=== PATIENT | male | born 1965 | race American Indian/Alaskan Native ===

== ENCOUNTER 2016-04-25 19:29 | Emergency (ER) | payer SELFPAY ==
[2016-04-25 20:26] VITALS: BP 157/111
[2016-04-25 20:57] LABS: Basophils % (Auto) 1.1 % (0.0-1.8); Eosinophils % (Auto) 0.8 % (0.0-4.3); Hematocrit 46.7 % (35.5-45.6); Hemoglobin 15.5 gm/dl (11.8-15.2); Mean Corpuscular HGB Conc 33 % (32-34); Mean Corpuscular Hemoglobin 31 pg (28-32); Mean Corpuscular Volume 93 fl (84-94); Platelet Count 186 K/mm3 (140-440); Red Blood Count 5.03 M/mm3 (3.65-5.03); Red Cell Distribution Width 15.7 % (13.2-15.2); White Blood Count 7.5 K/mm3 (4.5-11.0)
[2016-04-25 21:08] LABS: Anion Gap 21 mmol/L; Blood Urea Nitrogen 6 mg/dL (9-20); Calcium 9.3 mg/dL (8.4-10.2); Carbon Dioxide 24 mmol/L (22-30); Chloride 101.1 mmol/L (98-107); Glucose 84 mg/dL (75-100); Potassium 3.3 mmol/L (3.6-5.0); Sodium 143 mmol/L (137-145)
[2016-04-25] MEDS ORDERED: K-DUR PO ONE (21:52)
[2016-04-25] MEDS ORDERED: NORCO 7.5/325 PO ONE (21:53)
[2016-04-25] MEDS ORDERED: CLEOCIN IM ONE (21:53)
--- NOTE | 2016-04-25 21:58 | Emergency Department Report ---
ED General Adult HPI - General Chief complaint: Skin/Abscess/Foreign Body Stated complaint: RIGHT SIDE FACIAL CYST Time Seen by Provider: 04/25/16 21:45 Source: patient, family Mode of arrival: Ambulatory Limitations: No Limitations - History of Present Illness Initial comments: PT c/o bump on his face since Sunday. PT denies any injury or dental problem. PT states he has abscesses before. PT states the swelling has gotten bigger. MD Complaint: abscess Onset/Timin -: Gradual, days(s) Location: face Radiation: non-radiation Severity scale (0 -10): 8 Improves with: none Worsens with: movement, other (palpation ) Associated Symptoms: fever/chills (subjective fever ). denies: nausea/vomiting - Related Data Previous Rx's Medication Instructions Recorded Last Taken Type Acetaminophen/Codeine [Tylenol #3] 1 tab PO Q6H PRN #12 tab 04/25/16 Unknown Rx Clindamycin [Clindamycin CAP] 300 mg PO Q8H #30 cap 04/25/16 Unknown Rx Allergies Allergy/AdvReac Type Severity Reaction Status Date / Time No Known Allergies Allergy Unverified 04/25/16 20:28 ED Review of Systems ROS: Stated complaint: RIGHT SIDE FACIAL CYST Other details as noted in HPI Comment: All other systems reviewed and negative Constitutional: fever (subjective ) ENT: denies: throat pain, dental pain Gastrointestinal: denies: nausea, vomiting Skin: as per HPI, change in color, pruritus ED Past Medical Hx - Past Medical History Previous Medical History?: No Hx Hypertension: No Hx Diabetes: No - Surgical History Past Surgical History?: Yes Additional Surgical History: right leg. abdominal - Social History Smoking Status: Current Every Day Smoker Substance Use Type: Alcohol - Medications Home Medications: Home Medications Medication Instructions Recorded Confirmed Last Taken Type Acetaminophen/Codeine [Tylenol #3] 1 tab PO Q6H PRN #12 tab 04/25/16 Unknown Rx Clindamycin [Clindamycin CAP] 300 mg PO Q8H #30 cap 04/25/16 Unknown Rx ED Physical Exam - General Limitations: No Limitations General appearance: alert, in no apparent distress - Head Head exam: Present: atraumatic, normocephalic, other (firm 3 cm abscess to R mandible ) - Eye Eye exam: Present: normal appearance. Absent: conjunctival injection - ENT ENT exam: Present: normal orophraynx, mucous membranes moist, normal external ear exam, other (all of pt's lower teeth have been removed. no signs of gingivitis ) - Neck Neck exam: Present: normal inspection, full ROM. Absent: tenderness, lymphadenopathy - Respiratory Respiratory exam: Present: normal lung sounds bilaterally. Absent: respiratory distress - Cardiovascular Cardiovascular Exam: Present: regular rate, normal rhythm, normal heart sounds - Extremities Exam Extremities exam: Present: normal inspection, full ROM - Back Exam Back exam: Present: normal inspection - Neurological Exam Neurological exam: Present: alert, oriented X3 - Psychiatric Psychiatric exam: Present: normal affect, normal mood - Skin Skin exam: Present: warm, dry, intact ED Course Vital Signs 04/25/16 20:21 Temperature 99.5 F Pulse Rate 92 H Respiratory 18 Rate Blood Pressure 157/111 O2 Sat by Pulse 96 Oximetry - Reevaluation(s) Reevaluation #1: 04/25/16 22:01 PT advised to refrain from smoking, pt not ready to quit. PT given home instructions on abscess. PT also aware that he will need to have his bp rechecked by follow up. PT's family member states they have a doctor that the pt can follow up with. PT aware abscess is not ready for drainage at this time. - Pulse Oximetry Interpretation Digit-Finger Initial Pulse Oximetry Readin Actions Taken: none ED Medical Decision Making - Lab Data Result diagrams: 04/25/16 20:39 04/25/16 20:39 - Differential Diagnosis abscess, dental abscess Critical care attestation.: If time is entered above; I have spent that time in minutes in the direct care of this critically ill patient, excluding procedure time. ED Disposition Clinical Impression: Acute abscess of face, Hypokalemia, Tobacco abuse, Elevated blood pressure Disposition: DISCHARGED TO HOME OR SELFCARE Is pt being admited?: No Does the pt Need Aspirin: No Condition: Stable Instructions: How to Stop Smoking (ED), Hypokalemia (ED), Abscess (ED), Hypertension (ED) Additional Instructions: Warm compresses at least 4 times a day Please refrain from smoking Return for recheck in 2 days Follow up with PCP in 1 week for bp recheck No driving or ETOH after taking Tylenol #3 wash with OTC Hibiclens soap Prescriptions: Acetaminophen/Codeine [Tylenol #3] 1 tab PO Q6H PRN #12 tab PRN Reason: Pain , Severe (7-10) Clindamycin [Clindamycin CAP] 300 mg PO Q8H #30 cap Referrals: PRIMARY CARE, [Primary Care Provider] - 3-5 Days Forms: Work/School Release Form(ED) Time of Disposition: 22:09
== END 2016-04-25 22:36 | disposition home or self-care (01) ==
LOC: ED 19:29
DX: L02.01 Cutaneous abscess of face (principal); E87.6 Hypokalemia; R03.0 Elevated blood-pressure reading, without diagnosis of hypertension; F17.200 Nicotine dependence, unspecified, uncomplicated
CPT/HCPCS: 36415; 80048; 85025; 96372

== ENCOUNTER 2016-07-16 17:06 | Emergency (ER) | payer OTHER ==
[2016-07-16 17:55] LABS: Basophils % (Auto) 1.2 % (0.0-1.8); Eosinophils % (Auto) 1.3 % (0.0-4.3); Hematocrit 47.5 % (35.5-45.6); Hemoglobin 15.7 gm/dl (11.8-15.2); Mean Corpuscular HGB Conc 33 % (32-34); Mean Corpuscular Hemoglobin 30 pg (28-32); Mean Corpuscular Volume 92 fl (84-94); Platelet Count 171 K/mm3 (140-440); Red Blood Count 5.15 M/mm3 (3.65-5.03); Red Cell Distribution Width 14.9 % (13.2-15.2); White Blood Count 5.8 K/mm3 (4.5-11.0)
[2016-07-16 18:06] LABS: Anion Gap 17 mmol/L; BUN/Creatinine Ratio 7.77; Blood Urea Nitrogen 7 mg/dL (9-20); Calcium 8.7 mg/dL (8.4-10.2); Carbon Dioxide 27 mmol/L (22-30); Chloride 98.9 mmol/L (98-107); Glucose 160 mg/dL (75-100); Potassium 3.3 mmol/L (3.6-5.0); Sodium 140 mmol/L (137-145)
[2016-07-16 18:20] LABS: Bilirubin,Urine NEG (Negative); Blood,Urine SM (Negative); Ketones,Urine NEG (Negative); Leukocyte Esterase,Urine NEG (Negative); Mucus,Urine 3+ /HPF; Nitrite,Urine NEG (Negative); Protein,Urine <15 mg/dL mg/dL (Negative)
[2016-07-16] MEDS ORDERED: K-DUR PO ONE ×3 (20:39→21:00)
[2016-07-16 20:42] VITALS: BP 158/99
--- NOTE | 2016-07-16 21:07 | Emergency Department Report ---
HPI - General Chief Complaint: Nausea/Vomiting/Diarrhea Time Seen by Provider: 07/16/16 20:36 - HPI HPI: This is a 51-year-old -Portuguese male who presents to the emergency department from home with complaint of a one-week history of chills, intermittent fever, intermittent headache and body aches. He has not taken anything today for his symptoms but previously took some Advil and Goody powder with some transient relief. He admits to a mild cough but denies any diarrhea, vomiting, chest pain, shortness of breath. No recent travel or sick contacts at home. He denies any past medical history. He does not have a primary care physician. He is a tobacco smoker but denies any illicit drug use or abuse. ED Past Medical Hx - Past Medical History Previous Medical History?: No Hx Hypertension: No Hx Diabetes: No - Surgical History Additional Surgical History: right leg. PARTIAL AMPUTATED LEFT INDEX. abdominal (SWALLOWED FB -CHILD) - Social History Smoking Status: Current Every Day Smoker Substance Use Type: Alcohol, Marijuana - Medications Home Medications: Home Medications Medication Instructions Recorded Confirmed Last Taken Type Acetaminophen/Codeine [Tylenol #3] 1 tab PO Q6H PRN #12 tab 04/25/16 Unknown Rx Clindamycin [Clindamycin CAP] 300 mg PO Q8H #30 cap 04/25/16 Unknown Rx ED Review of Systems ROS: Stated complaint: COLD CHILLS/BODY ACHE/FEVER Other details as noted in HPI Comment: All other systems reviewed and negative Constitutional: chills, fever Eyes: denies: eye pain, eye discharge, vision change ENT: denies: ear pain, throat pain Respiratory: cough. denies: shortness of breath Cardiovascular: denies: chest pain, palpitations Gastrointestinal: nausea. denies: abdominal pain Musculoskeletal: myalgia. denies: joint swelling Skin: denies: rash, lesions Neurological: headache. denies: weakness, numbness Physical Exam - Physical Exam Vital Signs: Vital Signs 07/16/16 07/16/16 17:20 20:41 Temperature 99.3 F Pulse Rate 68 75 Respiratory 18 18 Rate Blood Pressure 171/105 Blood Pressure 158/99 [Left] O2 Sat by Pulse 100 100 Oximetry Physical Exam: GENERAL: The patient is well-developed well-nourished. HEENT: Normocephalic. Atraumatic. Extraocular motions are intact. Patient has moist mucous membranes. Pupils equal reactive to light bilaterally. No nystagmus. Oropharynx is clear without tonsillar hypertrophy, erythema or exudates. NECK: Supple. Trachea is midline. CHEST/LUNGS: Clear to auscultation. There is no respiratory distress noted. No cough heard during examination. HEART/CARDIOVASCULAR: Regular. There is no tachycardia. There is no gallop rub or murmur. ABDOMEN: Abdomen is soft, nontender. Patient has normal bowel sounds. There is no abdominal distention. SKIN: Skin is warm and dry. NEURO: The patient is awake, alert, and oriented. The patient is cooperative. The patient has no focal neurologic deficits. The patient has normal speech. Cranial nerves II-12 grossly intact. MUSCULOSKELETAL: There is no tenderness or deformity. There is no limitation range of motion. There is no evidence of acute injury. ED Course Vital Signs 07/16/16 07/16/16 17:20 20:41 Temperature 99.3 F Pulse Rate 68 75 Respiratory 18 18 Rate Blood Pressure 171/105 Blood Pressure 158/99 [Left] O2 Sat by Pulse 100 100 Oximetry ED Medical Decision Making - Lab Data Result diagrams: 07/16/16 17:33 07/16/16 17:33 - Radiology Data Radiology results: image reviewed interpreted by me: Chest x-ray did not show any acute process. Heart is normal shape and size. No effusions. No pneumothorax. No signs of pneumonia seen. - Medical Decision Making 51-year-old male presents to the emergency department with a one-week history of some intermittent chills, fever, headache, body aches. He does not have any significant past medical history. Vital signs stable here including being afebrile. There is no focal, motor or sensory deficits and his cranial nerves are intact. Labs are unremarkable including no leukocytosis, significant electrolyte abnormalities other than mild hypokalemia, any renal insufficiency. There is no urinary tract infection. On physical exam there is normal; heart and lungs sound normal to auscultation. No meningitis signs. Chest x-ray does not show any signs of pneumonia. I did not feel that any CT imaging of the head was warranted at this time. Patient says he is feeling well and he does not appear to be in any acute distress. He will be given referrals for primary care. He will use Tylenol and ibuprofen for fever and discomfort. He will return to the ER with any worsening of his symptoms or any acute distress. - Differential Diagnosis viral syndrome, pneumonia, bronchitis Critical Care Time: No Critical care attestation.: If time is entered above; I have spent that time in minutes in the direct care of this critically ill patient, excluding procedure time. ED Disposition Clinical Impression: Hypokalemia, Viral syndrome Hypertension Qualifiers: Hypertension type: essential hypertension Qualified Code(s): I10 - Essential ( primary) hypertension Disposition: TO HOME OR SELFCARE Is pt being admited?: No Condition: Stable Instructions: Hypertension (ED), Viral Syndrome (ED) Additional Instructions: Please follow-up with a primary care physician in the next few days. Return to the emergency department with any worsening of her symptoms, intractable fever, intractable vomiting, chest pain, shortness of breath or any acute distress. He can use Tylenol every 4 hours and ibuprofen every 6 hours, using weight- based dosing, as needed for fever or discomfort. Referrals: PRIMARY CARE, [Primary Care Provider] - 3-5 Days TONY BIRD MD [Staff Physician] - 3-5 Days YAZMIN BOURGEOIS MD [Staff Physician] - 3-5 Days OTTO TORO MD [Staff Physician] - 3-5 Days Time of Disposition: 22:02
--- NOTE | 2016-07-16 22:09 | XRay Report ---
FINAL REPORT EXAM: XR CHEST ROUTINE 2V HISTORY: cough TECHNIQUE: Frontal and lateral chest x-ray. PRIORS: None. FINDINGS: Cardiac and mediastinal silhouette within normal limits. Lungs are normally expanded. No focal consolidation, pleural effusions or apparent pneumothorax. IMPRESSION: 1. No acute consolidation.
== END 2016-07-16 22:14 | disposition home or self-care (01) ==
LOC: ED 17:06
DX: E87.6 Hypokalemia (principal); I10 Essential (primary) hypertension; B34.9 Viral infection, unspecified; F17.200 Nicotine dependence, unspecified, uncomplicated; F12.10 Cannabis abuse, uncomplicated
CPT/HCPCS: 36415; 71020; 80048; 81001; 82962; 85025; 99284